=== PATIENT | female | born 2000 | race Caucasian/White ===

== ENCOUNTER 2020-09-04 16:28 | Emergency (ER) | payer OTHER ==
[~2020-09-04] VITALS: Ht 175.3 cm; Wt 77.1 kg
[2020-09-04] MEDS ORDERED: CEFADROXIL500 MG PO (18:15)
== END 2020-09-04 19:22 | disposition home or self-care (01) ==
LOC: ER 16:28
DX: J03.90 Acute tonsillitis, unspecified (principal)